=== PATIENT | female | born 1975 | race Caucasian/White ===

== ENCOUNTER 2018-08-04 10:11 | Emergency (ER) | payer MEDICAID ==
[~2018-08-04] VITALS: Ht 167.6 cm; Wt 149.2 kg
[2018-08-04 10:16] VITALS: Ht 167.6 cm; Wt 149.2 kg
[2018-08-04 11:38] LABS: BASOPHIL % 0.4 % (0-2); PLATELET COUNT 230 x10^3mcL (130-400); RED CELL DISTRIBUTION WIDTH 13.5 % (11.5-14.5)
[2018-08-04 12:08] LABS: CALCIUM 9.3 mg/dL (8.5-10.1); CARBON DIOXIDE 27.6 mmol/L (21-32); CHLORIDE SERUM 102 mmol/L (98-107); CREATININE SERUM 0.6 mg/dL (0.6-1.0); GFR1 > 60 mL/min; GLUCOSE SERUM 278 mg/dL (74-106); POTASSIUM SERUM 4.7 mmol/L (3.5-5.1); SODIUM SERUM 140 mmol/L (136-145)
[2018-08-04 12:13] LABS: ALBUMIN 3.5 g/dL (3.4-5.0); ALKALINE PHOSPHATASE 60 U/L (46-116); ALT/SGPT 34 U/L (14-59); AST/SGOT 17 U/L (15-37); BILIRUBIN TOTAL 0.57 mg/dL (0.20-1.00); TOTAL PROTEIN, SERUM 7.3 g/dL (6.4-8.2)
[2018-08-04 13:37] VITALS: BP 143/91
== END 2018-08-04 13:37 | disposition home or self-care (01) ==
LOC: ED 10:11
PROVIDERS: Emergency Medicine
DX: L30.8 Other specified dermatitis (principal); E11.65 Type 2 diabetes mellitus with hyperglycemia; I10 Essential (primary) hypertension
CPT/HCPCS: 36415; 83880; 85378; Q0092

== ENCOUNTER 2018-08-08 14:43 | Emergency (ER) | payer MEDICAID ==
[~2018-08-08] VITALS: Ht 167.6 cm; Wt 149.2 kg
[2018-08-08 14:46] VITALS: BP 148/99; Ht 167.6 cm; Wt 149.2 kg
== END 2018-08-08 16:27 | disposition home or self-care (01) ==
LOC: ED 14:43
DX: L50.9 Urticaria, unspecified (principal); I10 Essential (primary) hypertension; E11.9 Type 2 diabetes mellitus without complications
CPT/HCPCS: J7512